=== PATIENT | male | born 1965 | race Caucasian/White ===

== ENCOUNTER 2018-11-01 20:50 | Emergency (ER) | payer SELFPAY ==
[~2018-11-01] VITALS: Ht 167.6 cm; Wt 72.7 kg
[~2018-11-01 20:50] MED LIST: NOCURR
[2018-11-01] MEDS ORDERED: ONDANSETRON HCL 4 MG TABLET PO ONE (22:30)
[2018-11-01 22:52] VITALS: BP 144/98
== END 2018-11-01 22:58 | disposition home or self-care (01) ==
LOC: EMS 20:51
DX: R11.10 Vomiting, unspecified (principal); F17.210 Nicotine dependence, cigarettes, uncomplicated; F12.10 Cannabis abuse, uncomplicated; F15.10 Other stimulant abuse, uncomplicated
CPT/HCPCS: 99282; Q0162

== ENCOUNTER 2020-09-04 12:25 | Emergency (ER) | payer MEDICAID ==
[~2020-09-04] VITALS: Ht 167.6 cm; Wt 72.7 kg
[2020-09-04] MEDS ORDERED: IBUPROFEN 600 MG TABLET PO ONE (14:00)
[2020-09-04] MEDS ORDERED: LIDOCAINE 5% TRANSDERMAL PATCH TD ONE (14:00)
[2020-09-04 15:00] VITALS: BP 112/79
== END 2020-09-04 15:18 | disposition home or self-care (01) ==
LOC: EMS 12:27
DX: S20.214A Contusion of middle front wall of thorax, initial encounter (principal); F17.210 Nicotine dependence, cigarettes, uncomplicated; F12.90 Cannabis use, unspecified, uncomplicated; F19.90 Other psychoactive substance use, unspecified, uncomplicated; W50.0XXA Accidental hit or strike by another person, initial encounter; Y93.89 Activity, other specified; Y92.89 Other specified places as the place of occurrence of the external cause; Y99.8 Other external cause status
CPT/HCPCS: 71045-TC

== ENCOUNTER 2021-01-08 08:21 | Emergency (ER) | payer MEDICAID ==
[~2021-01-08] VITALS: Ht 167.6 cm; Wt 68.2 kg
[2021-01-08] MEDS ORDERED: DOXYCYCLINE HYCLATE 100 MG TABLET PO ONE (08:45)
[2021-01-08 08:58] LABS: BASOPHILS % (AUTO) 0.3 % (0.0-2.0); EOSINOPHILS % (AUTO) 4.5 % (1.0-6.0); HEMATOCRIT 42.5 % (41-53); HEMOGLOBIN 14.7 g/dL (13.5-17.5); LYMPHOCYTES # (AUTO) 1.3 K/uL (1.0-4.8); MEAN CORPUSCULAR HEMOGLOBIN 34.2 pg (26.0-34.0); MEAN CORPUSCULAR HGB CONC 34.7 G/dL (31.0-37.0); MEAN CORPUSCULAR VOLUME 99 fL (80-100); MONOCYTES # (AUTO) 0.8 K/uL (0.1-1.0); MONOCYTES % (AUTO) 6.9 % (2.0-9.0); NEUTROPHILS # (AUTO) 9.4 K/uL (1.8-7.7); NEUTROPHILS % (AUTO) 77.3 % (40.0-70.0); PLATELET COUNT (AUTO) 235 K/uL (150-450); RED BLOOD CELL COUNT(AUTO) 4.31 MIL/uL (4.50-5.90); RED CELL DISTRIBUTION WIDTH 13.1 % (11.5-14.5)
[2021-01-08 09:09] LABS: ANION GAP 8 mmol/L (8-16); CARBON DIOXIDE 32 mmol/L (22-29); CHLORIDE 101 mmol/L (98-107); CREATININE 0.98 mg/dL (0.60-1.30); GLOMERULAR FILTR. RATE CALC > 60 mL/min (>60); GLUCOSE,RANDOM 99 mg/dL (70-110); POTASSIUM 3.9 mmol/L (3.5-5.1); SODIUM SERUM 141 mmol/L (136-145); UREA NITROGEN, BLOOD 20 mg/dL (7-18)
[2021-01-08 09:14] LABS: ALANINE AMINOTRANSFERASE 36 U/L (12-78); ALBUMIN 3.7 g/dL (3.4-5.0); ALKALINE PHOSPHATASE 59 U/L (46-116); ASPARTATE AMINOTRANSFERASE 20 U/L (15-37); BILIRUBIN,TOTAL 5.9 mg/dL (0.1-1.0); LIPASE 104 U/L (73-393); TOTAL PROTEIN, SERUM 7.7 g/dL (6.4-8.2)
[2021-01-08 09:17] LABS: B-TYPE NATRIURETIC PEPTIDE 7 pg/mL (0-100); INR 1.1 (0.9-1.1); PROTHROMBIN TIME 11.3 SEC (9.4-11.6)
[2021-01-08 09:45] VITALS: BP 150/96
== END 2021-01-08 10:22 | disposition home or self-care (01) ==
LOC: EMS 08:25
DX: L03.116 Cellulitis of left lower limb (principal); L03.115 Cellulitis of right lower limb; E80.6 Other disorders of bilirubin metabolism; F17.210 Nicotine dependence, cigarettes, uncomplicated; F12.90 Cannabis use, unspecified, uncomplicated; F19.90 Other psychoactive substance use, unspecified, uncomplicated
CPT/HCPCS: 36415; 80053; 82247; 82248; 83690; 83880; 85025; 85610; 85730; 99283; G0480

== ENCOUNTER 2021-01-11 12:31 | Emergency (ER) | payer MEDICAID ==
[~2021-01-11] VITALS: Ht 167.6 cm; Wt 68.2 kg
[2021-01-11] MEDS ORDERED: ACETAMINOPHEN 325 MG TABLET PO ONE (14:00)
[2021-01-11] MEDS ORDERED: POVIDONE-IODINE 10% 15 ML SOLUTION UD TP ONE (14:00)
[2021-01-11] MEDS ORDERED: BACITRACIN 0.9 GM PACKET OINTMENT TP ONE (14:00)
[2021-01-11 14:29] VITALS: BP 125/91
== END 2021-01-11 14:48 | disposition home or self-care (01) ==
LOC: EMS 12:43
DX: L03.115 Cellulitis of right lower limb (principal); L03.116 Cellulitis of left lower limb; F10.10 Alcohol abuse, uncomplicated; F15.10 Other stimulant abuse, uncomplicated; F17.210 Nicotine dependence, cigarettes, uncomplicated; F12.90 Cannabis use, unspecified, uncomplicated; F19.90 Other psychoactive substance use, unspecified, uncomplicated
CPT/HCPCS: 99281; 99283

== ENCOUNTER 2025-02-03 11:44 | Emergency (ER) | payer MEDICAID ==
[~2025-02-03] VITALS: Ht 167.6 cm; Wt 104.6 kg
[2025-02-03 11:46] VITALS: TEMP 97.5
[2025-02-03] MEDS: LIDOCAINE 1% 10 ML VIAL SQ ONE (13:47)
[2025-02-03] MEDS ORDERED: DOCU-385 PO (13:57)
[2025-02-03] MEDS ORDERED: SULF-261 PO (13:57)
[2025-02-03] MEDS ORDERED: CEPH-558 PO (13:57)
[2025-02-03] MEDS: SULFAMETHOX/TRIMETH DS 800-160 MG/TABLET PO ONE (14:10)
[2025-02-03] MEDS: BACITRACIN 28 GM OINTMENT TP ONE (14:10)
[2025-02-03] MEDS: CEPHALEXIN MONOHYDRATE 500 MG CAPSULE PO ONE (14:10)
[2025-02-03 14:25] VITALS: BP 154/93; PULSE 84; RESP 18; O2SAT 96
== END 2025-02-03 14:31 | disposition home or self-care (01) ==
LOC: EMS 11:46
DX: S60.451A Superficial foreign body of left index finger, initial encounter (principal); K64.4 Residual hemorrhoidal skin tags; F12.90 Cannabis use, unspecified, uncomplicated; F17.210 Nicotine dependence, cigarettes, uncomplicated; X58.XXXA Exposure to other specified factors, initial encounter; Y93.89 Activity, other specified; Y92.89 Other specified places as the place of occurrence of the external cause; Y99.8 Other external cause status
CPT/HCPCS: 99284; 96372; J3490